=== PATIENT | female | born 1955 | race Caucasian/White ===

== ENCOUNTER 2020-07-06 10:23 | Outpatient (CLI) | payer OTHER, SELFPAY ==
--- NOTE | 2020-07-06 11:30 | NEURO_ITS ---
TEST: ELECTROENCEPHALOGRAM DIAGNOSIS: SEIZURE PATIENT NUMBER: [id number] EEG NUMBER: [id number] RECORDING DATE: 07/06/20 CLINICAL HISTORY: Patient reports she had a brain tumor removed 6 years ago. She started having seizures for about a year after surgery then has been seizure free until couple of months ago. CONDITION OF RECORDING: Awake, drowsy and sleep EEG DESCRIPTION: Basic resting occipital frequency consists of moderate amount of fairly well organized low voltage 8-10hz alpha mixed with low voltage 15-18hz beta. During drowsiness low voltage beta activity is seen diffusely mixed with waxing and waning posterior alpha rhythms. Bilateral symmetrical sleep activity is seen during sleep. Photic stimulation produced normal drive. Multiple movement and muscle artifacts are seen throughout the tracing. Nonparoxysmal. Nonfocal. Nonlateralizing. IMPRESSION: No significant abnormalities noted MTDD
== END 2020-07-06 10:24 | disposition home or self-care (01) ==
PROVIDERS: PCP Internal Medicine; Visit Provider Psychiatry & Neurology Neurology
DX: R56.9 Unspecified convulsions (principal)
CPT/HCPCS: 95816

== ENCOUNTER 2021-01-21 13:30 | Outpatient (CLI) | payer MEDICARE, SELFPAY | END 2021-01-21 13:31 | disposition home or self-care (01) | LOC: ANHAUDIO 13:31 | PROVIDERS: PCP Internal Medicine; Visit Provider Otolaryngology | DX: H91.92 Unspecified hearing loss, left ear (principal) | CPT/HCPCS: 92557; 92567 ==

== ENCOUNTER 2021-12-18 08:18 | Outpatient (RCR) | payer MEDICARE, SELFPAY ==
[2021-12-18 09:06] VITALS: BP 176/54; PULSE 80; RESP 20; TEMP 36.2; O2SAT 100
[2021-12-18] MEDS: FAMOTIDINE 20 MG TABLET PO (09:10)
[2021-12-18] MEDS: diphenhydrAMINE HCl CAP 25 MG CAPSULE PO (09:11)
--- NOTE | 2021-12-18 09:17 | PC.NURSE ---
Patient took 200mg of Ibuprophen instead of Tylenol. Tylenol upset stomach so patient refused.
[2021-12-18 10:44] VITALS: BP 139/57; PULSE 69; O2SAT 100
== END 2021-12-18 17:00 ==
LOC: AMCINF 08:18
PROVIDERS: PCP Internal Medicine; Visit Provider Internal Medicine Hematology & Oncology
DX: U07.1 COVID-19 (principal); E11.9 Type 2 diabetes mellitus without complications; C90.30 Solitary plasmacytoma not having achieved remission
CPT/HCPCS: A9270; M0247; Q0247